=== PATIENT | female | born 1955 | race Caucasian/White ===

== ENCOUNTER 2023-03-02 20:07 | Emergency (ER) | payer MEDICARE ==
[~2023-03-02] VITALS: Ht 170.2 cm; Wt 104.3 kg
[2023-03-02 20:15] VITALS: BP 148/98
[2023-03-02] MEDS ORDERED: Bactrim Ds Tab1 EACH PO (20:24)
== END 2023-03-02 20:28 | disposition home or self-care (01) ==
LOC: ER 20:07
DX: L97.519 Non-pressure chronic ulcer of other part of right foot with unspecified severity (principal); B95.62 Methicillin resistant Staphylococcus aureus infection as the cause of diseases classified elsewhere; Z88.1 Allergy status to other antibiotic agents; Z88.2 Allergy status to sulfonamides; Z79.899 Other long term (current) drug therapy
CPT/HCPCS: 99283; A9270

== ENCOUNTER → 2023-03-14 | Outpatient (CLI) | payer MEDICARE ==
[~2023-03-14] MED LIST: Bactrim Ds Tab1 EACH PO
== END | disposition home or self-care (01) ==
LOC: LAB 17:20 → LAB SHORT 17:20
DX: S81.801S Unspecified open wound, right lower leg, sequela (principal); L08.9 Local infection of the skin and subcutaneous tissue, unspecified; A49.02 Methicillin resistant Staphylococcus aureus infection, unspecified site
CPT/HCPCS: 87070; 87077; 87186; 87205

== ENCOUNTER → 2023-04-13 | Outpatient (CLI) | payer MEDICARE | LOC: LAB 17:33 → LAB SHORT 17:33 | DX: L08.9 Local infection of the skin and subcutaneous tissue, unspecified (principal); L71.8 Other rosacea | CPT/HCPCS: 87070; 87205 ==